=== PATIENT | female | born 1980 ===

== ENCOUNTER → 2023-02-18 | Outpatient (CLI) | payer BC ==
[~2023-02-18] MED LIST: PRENATAL1 TA1
== END ==
LOC: MC.RAD 08:57
DX: Z12.31 Encounter for screening mammogram for malignant neoplasm of breast (principal)

== ENCOUNTER → 2024-02-22 | Outpatient (CLI) | payer BC | LOC: MC.RAD 11:45 | DX: Z12.31 Encounter for screening mammogram for malignant neoplasm of breast (principal); R92.0 Mammographic microcalcification found on diagnostic imaging of breast ==